=== PATIENT | female | born 1995 ===

== ENCOUNTER 2018-04-22 18:43 | Emergency (ER) | payer SELFPAY ==
[~2018-04-22] VITALS: Ht 157.5 cm; Wt 50.0 kg
[2018-04-22 18:52] VITALS: BP 117/76; PULSE 105; TEMP 98.3
[2018-04-22] MEDS ORDERED: LEXAPRO20 MG PO (19:08)
[2018-04-22] MEDS ORDERED: VYVANSE60 MG PO (19:08)
== END 2018-04-22 20:10 | disposition home or self-care (01) ==
LOC: COL.ER 18:43
DX: T74.21XA Adult sexual abuse, confirmed, initial encounter (principal)

== ENCOUNTER → 2018-04-22 | Outpatient (CLI) | payer SELFPAY ==
[~2018-04-22] MED LIST: LEXAPRO20 MG PO; VYVANSE60 MG PO
== END ==
LOC: LDRO 19:28
DX: T74.21XA Adult sexual abuse, confirmed, initial encounter (principal)

== ENCOUNTER → 2018-04-22 | Outpatient (REF) | LOC: LDRO 19:30 | DX: T74.21XA Adult sexual abuse, confirmed, initial encounter (principal) ==